=== PATIENT | female | born 1990 | race African-American/Black ===

== ENCOUNTER 2021-05-17 08:33 | Day surgery (SDC) | payer OTHER ==
[2021-05-17 08:43] VITALS: BMI 40.8
[2021-05-17] MEDS ORDERED: PROPOFOL 20 ML ONE ×2 (10:22)
[2021-05-17] MEDS ORDERED: SUCCINYLCHOLINE CHLORIDE 200 MG/10 ML SYRINGE ONE (10:22)
[2021-05-17] MEDS ORDERED: KETAMINE HCL 200 MG/20 ML VIAL ONE (10:23)
[2021-05-17 12:06] VITALS: BP 131/87; PULSE 100; TEMP 97.8
== END 2021-05-17 11:45 | disposition home or self-care (01) ==
LOC: FECT 08:33
PROVIDERS: ATTEND Psychiatry & Neurology Psychiatry
PROC: GZB4ZZZ Other Electroconvulsive Therapy (ICD-10-PCS; principal; 2021-05-17 09:00)
DX: F25.9 Schizoaffective disorder, unspecified (principal)
CPT/HCPCS: 84703; 90870; 94760; C9803; U0003; U0005

== ENCOUNTER 2021-05-20 10:57 | Day surgery (SDC) | payer OTHER ==
[2021-05-17 17:38] VITALS: BMI 40.8
[2021-05-20 15:00] VITALS: TEMP 99
[2021-05-20 15:41] VITALS: PULSE 92
[2021-05-20 16:54] VITALS: BP 113/62
== END 2021-05-20 16:30 | disposition home or self-care (01) ==
LOC: FECT 10:57
PROVIDERS: ATTEND Psychiatry & Neurology Psychiatry
PROC: GZB4ZZZ Other Electroconvulsive Therapy (ICD-10-PCS; principal; 2021-05-20)
DX: F25.1 Schizoaffective disorder, depressive type (principal)
CPT/HCPCS: 90870; 94760; C9803; U0003; U0005

== ENCOUNTER 2021-05-22 08:40 | Day surgery (SDC) | payer OTHER ==
[2021-05-20 12:05] VITALS: BMI 40.7
[2021-05-22] MEDS ORDERED: KETAMINE HCL 500 MG/10 ML VIAL ONE (10:03)
[2021-05-22 11:04] VITALS: PULSE 86; TEMP 98.2
[2021-05-22 12:41] VITALS: BP 133/80
== END 2021-05-22 11:35 | disposition home or self-care (01) ==
LOC: FECT 08:40
PROVIDERS: ATTEND Psychiatry & Neurology Psychiatry
PROC: GZB4ZZZ Other Electroconvulsive Therapy (ICD-10-PCS; principal; 2021-05-22 09:30)
DX: F25.9 Schizoaffective disorder, unspecified (principal)
CPT/HCPCS: 84703; 90870; 94760; C9803; U0003; U0005

== ENCOUNTER 2021-05-27 10:35 | Day surgery (SDC) | payer OTHER ==
[2021-05-20 12:09] VITALS: BMI 40.7
[2021-05-27 11:17] VITALS: TEMP 97.8
[2021-05-27] MEDS ORDERED: KETAMINE HCL 500 MG/10 ML VIAL ONE (12:13)
[2021-05-27 15:24] VITALS: BP 128/78; PULSE 96
== END 2021-05-27 14:05 | disposition home or self-care (01) ==
LOC: FECT 10:35
PROVIDERS: ATTEND Psychiatry & Neurology Psychiatry
PROC: GZB4ZZZ Other Electroconvulsive Therapy (ICD-10-PCS; principal; 2021-05-27 12:00)
DX: F25.1 Schizoaffective disorder, depressive type (principal)
CPT/HCPCS: 84703; 90870; 94760; C9803; U0003; U0005

== ENCOUNTER 2021-05-30 08:54 | Day surgery (SDC) | payer OTHER ==
[2021-05-23 07:05] VITALS: BMI 40.7
[2021-05-30] MEDS ORDERED: LIDOCAINE 2.5%/PRILOCAINE 2.5% (5 Gram/TUBE) TP ONE (09:45)
[2021-05-30] MEDS ORDERED: KETAMINE HCL 500 MG/10 ML VIAL ONE (11:27)
[2021-05-30 12:27] VITALS: TEMP 98.6
[2021-05-30 12:57] VITALS: BP 122/79; PULSE 85
[2021-05-31 21:06] LABS: SARS-CoV-2 NAA Not Detected (Not Detected)
== END 2021-05-30 12:55 ==
LOC: FECT 08:54
PROVIDERS: ATTEND Psychiatry & Neurology Psychiatry
PROC: GZB4ZZZ Other Electroconvulsive Therapy (ICD-10-PCS; principal; 2021-05-30 10:00)
DX: F25.9 Schizoaffective disorder, unspecified (principal)
CPT/HCPCS: 90870; 94760; C9803; U0003; U0005

== ENCOUNTER 2021-06-03 08:17 | Day surgery (SDC) | payer OTHER ==
[2021-05-29 09:58] VITALS: BMI 40.7
[2021-06-03 09:54] VITALS: TEMP 98.3
[2021-06-03] MEDS ORDERED: KETAMINE HCL 500 MG/10 ML VIAL ONE (10:32)
[2021-06-03 12:22] VITALS: BP 136/86; PULSE 88
[2021-06-04 14:12] LABS: SARS-CoV-2 NAA Not Detected (Not Detected)
== END 2021-06-03 12:25 | disposition home or self-care (01) ==
LOC: FECT 08:17
PROVIDERS: ATTEND Psychiatry & Neurology Psychiatry
PROC: GZB4ZZZ Other Electroconvulsive Therapy (ICD-10-PCS; principal; 2021-06-03 10:00)
DX: F25.9 Schizoaffective disorder, unspecified (principal)
CPT/HCPCS: 84703; 90870; 94760; C9803; U0003; U0005

== ENCOUNTER 2021-06-06 08:18 | Day surgery (SDC) | payer OTHER ==
[2021-05-29 08:26] VITALS: BMI 40.7
[2021-06-06] MEDS ORDERED: KETAMINE HCL 500 MG/10 ML VIAL ONE (09:20)
[2021-06-06 10:30] VITALS: TEMP 98
[2021-06-06 11:18] VITALS: BP 110/74; PULSE 86
[2021-06-07 15:08] LABS: SARS-CoV-2 NAA Not Detected (Not Detected)
== END 2021-06-06 11:00 ==
LOC: FECT 08:18
PROVIDERS: ATTEND Psychiatry & Neurology Psychiatry
PROC: GZB4ZZZ Other Electroconvulsive Therapy (ICD-10-PCS; principal; 2021-06-06 09:30)
DX: F25.9 Schizoaffective disorder, unspecified (principal)
CPT/HCPCS: 90870; 94760; C9803; U0003; U0005

== ENCOUNTER 2021-06-07 08:53 | Day surgery (SDC) | payer OTHER ==
[2021-06-07 09:35] VITALS: BMI 40.6
[2021-06-07] MEDS ORDERED: KETAMINE HCL 500 MG/10 ML VIAL ONE (10:47)
[2021-06-07] MEDS ORDERED: LACTATED RINGERS SOLUTION 1,000 ML IV SCH (11:15)
[2021-06-07 11:41] VITALS: TEMP 98.6
[2021-06-07 12:09] VITALS: BP 142/87; PULSE 74
== END 2021-06-07 12:10 | disposition home or self-care (01) ==
LOC: FECT 08:53
PROVIDERS: ATTEND Psychiatry & Neurology Psychiatry
PROC: GZB4ZZZ Other Electroconvulsive Therapy (ICD-10-PCS; principal; 2021-06-07 10:00)
DX: F25.9 Schizoaffective disorder, unspecified (principal)
CPT/HCPCS: 84703; 90870; 94760

== ENCOUNTER 2021-06-10 08:33 | Day surgery (SDC) | payer OTHER ==
[2021-06-04 13:38] VITALS: BMI 40.7
[2021-06-10] MEDS ORDERED: KETAMINE HCL 500 MG/10 ML VIAL ONE (09:38)
[2021-06-10 11:01] VITALS: TEMP 98.1
[2021-06-10] MEDS ORDERED: ACETAMINOPHEN 325 MG TABLET (FP) PO ONE (11:13)
[2021-06-10 11:55] VITALS: BP 126/88; PULSE 99
[2021-06-11 14:08] LABS: SARS-CoV-2 NAA Not Detected (Not Detected)
== END 2021-06-10 11:15 | disposition home or self-care (01) ==
LOC: FECT 08:33
PROVIDERS: ATTEND Psychiatry & Neurology Psychiatry
PROC: GZB4ZZZ Other Electroconvulsive Therapy (ICD-10-PCS; principal; 2021-06-10 09:30)
DX: F25.1 Schizoaffective disorder, depressive type (principal)
CPT/HCPCS: 90870; 94760; C9803-CS; U0003; U0005

== ENCOUNTER 2021-06-13 08:36 | Day surgery (SDC) | payer OTHER ==
[2021-06-13 09:16] VITALS: BMI 40.7
[2021-06-13] MEDS ORDERED: KETAMINE HCL 500 MG/10 ML VIAL ONE (09:56)
[2021-06-13 11:53] VITALS: TEMP 98.1
[2021-06-13 11:55] VITALS: BP 121/81; PULSE 86
== END 2021-06-13 11:30 ==
LOC: FECT 08:36
PROVIDERS: ATTEND Psychiatry & Neurology Psychiatry
PROC: GZB4ZZZ Other Electroconvulsive Therapy (ICD-10-PCS; principal; 2021-06-13 10:00)
DX: F25.9 Schizoaffective disorder, unspecified (principal)
CPT/HCPCS: 81025; 90870; 94760

== ENCOUNTER 2021-06-14 06:53 | Day surgery (SDC) | payer OTHER ==
[2021-06-06 13:04] VITALS: BMI 40.7
[2021-06-14] MEDS ORDERED: KETAMINE HCL 500 MG/10 ML VIAL ONE (08:43)
[2021-06-14] MEDS ORDERED: ONDANSETRON 4 MG/2 ML VIAL ONE (08:46)
[2021-06-14] MEDS ORDERED: GLYCOPYRROLATE 0.2 MG/1 ML VIAL ONE (08:46)
[2021-06-14] MEDS ORDERED: DEXAMETHASONE SOD PHOSPHATE 4 MG/1 ML VIAL ONE (08:46)
[2021-06-14] MEDS ORDERED: KETOROLAC TROMETHAMINE 30 MG/1 ML VIAL ONE (08:46)
[2021-06-14] MEDS ORDERED: LIDOCAINE HCL/PF 2% SDV 5ML VIAL ONE (08:46)
[2021-06-14] MEDS ORDERED: PROPOFOL 20 ML ONE (08:50)
[2021-06-14] MEDS ORDERED: PROMETHAZINE HCL 25 MG/1 ML VIAL IVPUSH PRN (09:57)
[2021-06-14] MEDS ORDERED: ACETAMINOPHEN 500 MG TABLET (FP) PO PRN (09:57)
[2021-06-14] MEDS ORDERED: ONDANSETRON 4 MG/2 ML VIAL IVPUSH PRN (09:57)
[2021-06-14] MEDS ORDERED: LACTATED RINGERS SOLUTION 1,000 ML IV SCH (10:00)
[2021-06-14 10:25] VITALS: TEMP 98.5
[2021-06-14 10:26] VITALS: BP 130/84; PULSE 89
[2021-06-15 16:08] LABS: SARS-CoV-2 NAA Not Detected (Not Detected)
== END 2021-06-14 10:15 ==
LOC: FECT 06:53
PROVIDERS: ATTEND Psychiatry & Neurology Psychiatry
PROC: GZB4ZZZ Other Electroconvulsive Therapy (ICD-10-PCS; principal; 2021-06-14 09:00)
DX: F25.9 Schizoaffective disorder, unspecified (principal)
CPT/HCPCS: 90870; 94760; C9803; U0003; U0005

== ENCOUNTER 2021-06-18 08:18 | Day surgery (SDC) | payer OTHER ==
[2021-06-18 08:41] VITALS: BMI 40.7
[2021-06-18] MEDS ORDERED: KETAMINE HCL 500 MG/10 ML VIAL ONE (10:34)
[2021-06-18] MEDS ORDERED: ACETAMINOPHEN 1000 MG/100 ML BAG IVPB ONE (11:00)
[2021-06-18 11:39] VITALS: TEMP 97.8
[2021-06-18 12:17] VITALS: BP 121/74; PULSE 90
[2021-06-19 11:08] LABS: SARS-CoV-2 NAA Not Detected (Not Detected)
== END 2021-06-18 12:20 | disposition home or self-care (01) ==
LOC: FECT 08:18
PROVIDERS: ATTEND Psychiatry & Neurology Psychiatry
PROC: GZB4ZZZ Other Electroconvulsive Therapy (ICD-10-PCS; principal; 2021-06-18 09:30)
DX: F25.1 Schizoaffective disorder, depressive type (principal); I10 Essential (primary) hypertension; E66.9 Obesity, unspecified; Z68.41 Body mass index [BMI] 40.0-44.9, adult; K21.9 Gastro-esophageal reflux disease without esophagitis
CPT/HCPCS: 84703; 90870; 94760; C9803; J0131; U0003; U0005

== ENCOUNTER 2021-06-20 08:48 | Day surgery (SDC) | payer OTHER ==
[2021-06-13 12:01] VITALS: BMI 40.7
[2021-06-20] MEDS ORDERED: KETAMINE HCL 500 MG/10 ML VIAL ONE (09:30)
[2021-06-20 12:09] VITALS: TEMP 98.2
[2021-06-20 12:20] VITALS: BP 122/85; PULSE 84
== END 2021-06-20 11:45 ==
LOC: FECT 08:48
PROVIDERS: ATTEND Psychiatry & Neurology Psychiatry
PROC: GZB4ZZZ Other Electroconvulsive Therapy (ICD-10-PCS; principal; 2021-06-20 09:30)
DX: F25.9 Schizoaffective disorder, unspecified (principal)
CPT/HCPCS: 90870; 94760

== ENCOUNTER 2021-06-21 07:10 | Day surgery (SDC) | payer OTHER ==
[2021-06-06 13:26] VITALS: BMI 40.7
[2021-06-21] MEDS ORDERED: KETAMINE HCL 500 MG/10 ML VIAL ONE (08:24)
[2021-06-21 12:58] VITALS: BP 114/75; PULSE 89; TEMP 97.5
== END 2021-06-21 10:25 | disposition home or self-care (01) ==
LOC: FECT 07:10
PROVIDERS: ATTEND Psychiatry & Neurology Psychiatry
PROC: GZB4ZZZ Other Electroconvulsive Therapy (ICD-10-PCS; principal; 2021-06-21 07:30)
DX: F25.1 Schizoaffective disorder, depressive type (principal)
CPT/HCPCS: 90870; 94760

== ENCOUNTER 2021-06-27 09:36 | Day surgery (SDC) | payer OTHER ==
[2021-06-18 17:18] VITALS: BMI 40.7
[2021-06-27] MEDS ORDERED: KETAMINE HCL 500 MG/10 ML VIAL ONE (10:52)
[2021-06-27 11:22] VITALS: TEMP 98.4
[2021-06-27 12:59] VITALS: BP 139/91; PULSE 88
== END 2021-06-27 13:00 ==
LOC: FECT 09:36
PROVIDERS: ATTEND Psychiatry & Neurology Psychiatry
PROC: GZB4ZZZ Other Electroconvulsive Therapy (ICD-10-PCS; principal; 2021-06-27 10:30)
DX: F32.9 Major depressive disorder, single episode, unspecified (principal)
CPT/HCPCS: 84703; 90870; 94760

== ENCOUNTER 2021-07-04 08:14 | Day surgery (SDC) | payer OTHER ==
[2021-06-28 12:35] VITALS: BMI 40.7
[2021-07-04] MEDS ORDERED: KETAMINE HCL 500 MG/10 ML VIAL ONE (10:15)
[2021-07-04 11:18] VITALS: PULSE 84; TEMP 97.8
[2021-07-04 11:39] VITALS: BP 122/74
[2021-07-05 19:07] LABS: SARS-CoV-2 NAA Not Detected (Not Detected)
== END 2021-07-04 11:30 ==
LOC: FECT 08:14
PROVIDERS: ATTEND Psychiatry & Neurology Psychiatry
PROC: GZB4ZZZ Other Electroconvulsive Therapy (ICD-10-PCS; principal; 2021-07-04 09:00)
DX: F25.9 Schizoaffective disorder, unspecified (principal)
CPT/HCPCS: 84703; 90870; 94760; C9803; U0003; U0005

== ENCOUNTER 2021-07-08 08:44 | Day surgery (SDC) | payer OTHER ==
[2021-07-05 07:52] VITALS: BMI 40.7
[2021-07-08] MEDS ORDERED: KETAMINE HCL 500 MG/10 ML VIAL ONE (09:44)
[2021-07-08 10:51] VITALS: PULSE 88; TEMP 98.2
[2021-07-08 11:54] VITALS: BP 121/76
== END 2021-07-08 12:00 ==
LOC: FECT 08:44
PROVIDERS: ATTEND Psychiatry & Neurology Psychiatry
PROC: GZB4ZZZ Other Electroconvulsive Therapy (ICD-10-PCS; principal; 2021-07-08 10:00)
DX: F25.9 Schizoaffective disorder, unspecified (principal)
CPT/HCPCS: 84703; 90870; 94760

== ENCOUNTER 2021-07-11 07:41 | Day surgery (SDC) | payer OTHER ==
[2021-07-05 07:58] VITALS: BMI 40.7
[2021-07-11] MEDS ORDERED: KETAMINE HCL 500 MG/10 ML VIAL ONE (09:41)
[2021-07-11 12:55] VITALS: TEMP 98.1
[2021-07-11 13:03] VITALS: BP 125/93; PULSE 80
[2021-07-11 15:38] LABS: HIV INTERPRETATION NEGATIVE (NEGATIVE)
== END 2021-07-11 11:25 ==
LOC: FECT 07:41
PROVIDERS: ATTEND Psychiatry & Neurology Psychiatry
PROC: GZB4ZZZ Other Electroconvulsive Therapy (ICD-10-PCS; principal; 2021-07-11 09:30)
DX: F25.9 Schizoaffective disorder, unspecified (principal)
CPT/HCPCS: 36415; 84460; 84703; 86803; 87340; 87389; 90870; 94760

== ENCOUNTER 2021-07-15 08:30 | Day surgery (SDC) | payer OTHER ==
[2021-07-12 09:47] VITALS: BMI 40.7
[2021-07-15] MEDS ORDERED: KETAMINE HCL 500 MG/10 ML VIAL ONE (10:15)
[2021-07-15 11:32] VITALS: TEMP 97.8
[2021-07-15 11:49] VITALS: BP 114/74; PULSE 89
[2021-07-16 13:11] LABS: SARS-CoV-2 NAA Not Detected (Not Detected)
== END 2021-07-15 11:45 ==
LOC: FECT 08:30
PROVIDERS: ATTEND Psychiatry & Neurology Psychiatry
PROC: GZB4ZZZ Other Electroconvulsive Therapy (ICD-10-PCS; principal; 2021-07-15 10:00)
DX: F25.1 Schizoaffective disorder, depressive type (principal)
CPT/HCPCS: 84703; 90870; 94760; C9803; U0003; U0005

== ENCOUNTER 2021-07-18 09:06 | Day surgery (SDC) | payer OTHER ==
[2021-07-16 08:08] VITALS: BMI 40.7
[2021-07-18 12:04] VITALS: TEMP 97.8
[2021-07-18 12:31] VITALS: BP 140/91; PULSE 88
[2021-07-19 12:08] LABS: SARS-CoV-2 NAA Not Detected (Not Detected)
== END 2021-07-18 12:30 ==
LOC: FECT 09:06
PROVIDERS: ATTEND Psychiatry & Neurology Psychiatry
PROC: GZB4ZZZ Other Electroconvulsive Therapy (ICD-10-PCS; principal; 2021-07-18 11:00)
DX: F25.9 Schizoaffective disorder, unspecified (principal)
CPT/HCPCS: 90870; 94760; C9803; U0003; U0005

== ENCOUNTER 2021-07-23 05:55 | Day surgery (SDC) | payer OTHER ==
[2021-07-17 14:00] VITALS: BMI 40.7
[2021-07-23 09:44] VITALS: TEMP 98
[2021-07-23 10:28] VITALS: BP 122/84; PULSE 89
[2021-07-24 10:08] LABS: SARS-CoV-2 NAA Not Detected (Not Detected)
== END 2021-07-23 10:15 ==
LOC: FECT 05:55
PROVIDERS: ATTEND Psychiatry & Neurology Psychiatry
PROC: GZB4ZZZ Other Electroconvulsive Therapy (ICD-10-PCS; principal; 2021-07-23 08:30)
DX: F25.1 Schizoaffective disorder, depressive type (principal)
CPT/HCPCS: 81025; 90870; 94760; C9803; U0003; U0005

== ENCOUNTER → 2021-07-25 | Day surgery (SDC) | payer OTHER ==
[2021-07-19 17:04] VITALS: BMI 40.7
[2021-07-25 09:31] VITALS: TEMP 97.7
[2021-07-25 10:17] VITALS: BP 130/62; PULSE 90
[2021-07-26 17:08] LABS: SARS-CoV-2 NAA Not Detected (Not Detected)
== END | disposition home or self-care (01) ==
LOC: FECT 05:49
PROVIDERS: ATTEND Psychiatry & Neurology Psychiatry
PROC: GZB4ZZZ Other Electroconvulsive Therapy (ICD-10-PCS; principal; 2021-07-25 08:36)
DX: F25.1 Schizoaffective disorder, depressive type (principal)
CPT/HCPCS: 90870; 94760; C9803; U0003; U0005

== ENCOUNTER 2021-07-29 06:05 | Day surgery (SDC) | payer OTHER ==
[2021-07-23 17:28] VITALS: BMI 40.7
[2021-07-29 11:06] VITALS: PULSE 79; TEMP 97.8
[2021-07-29 11:25] VITALS: BP 125/84
[2021-07-30 12:08] LABS: SARS-CoV-2 NAA Not Detected (Not Detected)
== END 2021-07-29 11:20 | disposition home or self-care (01) ==
LOC: FECT 06:05
PROVIDERS: ATTEND Psychiatry & Neurology Psychiatry
PROC: GZB4ZZZ Other Electroconvulsive Therapy (ICD-10-PCS; principal; 2021-07-29 09:30)
DX: F25.1 Schizoaffective disorder, depressive type (principal)
CPT/HCPCS: 84703; 90870; 94760; C9803; U0003; U0005

== ENCOUNTER 2021-08-01 08:16 | Day surgery (SDC) | payer OTHER ==
[2021-07-29 16:31] VITALS: BMI 40.7
[2021-08-01 11:25] VITALS: TEMP 97.6
[2021-08-01 11:54] VITALS: BP 133/73; PULSE 89
[2021-08-01] MEDS ORDERED: ACETAMINOPHEN 325 MG TABLET (FP) PO PRN (12:01)
[2021-08-02 13:08] LABS: SARS-CoV-2 NAA Not Detected (Not Detected)
== END 2021-08-01 11:55 ==
LOC: FECT 08:16
PROVIDERS: ATTEND Psychiatry & Neurology Psychiatry
PROC: GZB4ZZZ Other Electroconvulsive Therapy (ICD-10-PCS; principal; 2021-08-01 10:34)
DX: F25.9 Schizoaffective disorder, unspecified (principal)
CPT/HCPCS: 90870; 94760; C9803; U0003; U0005

== ENCOUNTER 2021-08-05 07:25 | Day surgery (SDC) | payer OTHER ==
[2021-08-01 17:03] VITALS: BMI 40.7
[2021-08-05] MEDS ORDERED: KETAMINE HCL 500 MG/10 ML VIAL ONE (08:48)
[2021-08-05 09:16] VITALS: TEMP 98.2
[2021-08-05 10:06] VITALS: BP 116/70; PULSE 90
[2021-08-06 13:08] LABS: SARS-CoV-2 NAA Not Detected (Not Detected)
== END 2021-08-05 10:40 | disposition home or self-care (01) ==
LOC: FECT 07:25
PROVIDERS: ATTEND Psychiatry & Neurology Psychiatry
PROC: GZB4ZZZ Other Electroconvulsive Therapy (ICD-10-PCS; principal; 2021-08-05 09:00)
DX: F25.1 Schizoaffective disorder, depressive type (principal)
CPT/HCPCS: 81025; 90870; 94760; C9803; U0003; U0005

== ENCOUNTER 2021-08-08 08:15 | Day surgery (SDC) | payer OTHER ==
[2021-08-06 16:56] VITALS: BMI 40.7
[2021-08-08 11:30] VITALS: PULSE 87; TEMP 98.6
[2021-08-08 11:33] VITALS: BP 129/84
[2021-08-09 13:08] LABS: SARS-CoV-2 NAA Not Detected (Not Detected)
== END 2021-08-08 11:20 | disposition home or self-care (01) ==
LOC: FECT 08:15
PROVIDERS: ATTEND Psychiatry & Neurology Psychiatry
PROC: GZB4ZZZ Other Electroconvulsive Therapy (ICD-10-PCS; principal; 2021-08-08 09:56)
DX: F25.9 Schizoaffective disorder, unspecified (principal)
CPT/HCPCS: 90870; 94760; C9803; U0003; U0005

== ENCOUNTER 2021-08-12 08:39 | Day surgery (SDC) | payer OTHER ==
[2021-08-08 08:02] VITALS: BMI 40.7
[2021-08-12 09:56] VITALS: TEMP 98.1
[2021-08-12 12:52] VITALS: BP 144/89; PULSE 89
[2021-08-13 14:09] LABS: SARS-CoV-2 NAA Not Detected (Not Detected)
== END 2021-08-12 12:55 ==
LOC: FECT 08:39
PROVIDERS: ATTEND Psychiatry & Neurology Psychiatry
PROC: GZB4ZZZ Other Electroconvulsive Therapy (ICD-10-PCS; principal; 2021-08-12 11:47)
DX: F25.1 Schizoaffective disorder, depressive type (principal)
CPT/HCPCS: 84703; 90870; 94760; C9803; U0003; U0005

== ENCOUNTER 2021-08-15 08:51 | Day surgery (SDC) | payer OTHER ==
[2021-08-09 12:50] VITALS: BMI 40.7
[2021-08-15 11:09] VITALS: TEMP 98
[2021-08-15 11:34] VITALS: BP 122/76; PULSE 84
[2021-08-15 11:58] LABS: CALCIUM 8.6 mg/dL (8.5-10.1)
[2021-08-15 11:59] LABS: BLOOD UREA NITROGEN 11.8 mg/dL (7-18); MAGNESIUM 1.7 mg/dL (1.8-2.4)
[2021-08-15 12:02] LABS: BASO % 0.3 % (0-2.0); EOS % 3.7 % (0-4.5); HEMATOCRIT 33.2 % (32.4-45.2); HEMOGLOBIN 10.9 GM/dL (10.7-15.3); LYMPH % 33.6 % (8-40); MCH 26.5 pg (25.7-33.7); MCHC 32.8 g/dl (32.0-36.0); MEAN CELL VOLUME 80.9 fl (80-96); MEAN PLT VOLUME 8.9 fl (7.5-11.1); MONO % 7.5 % (3.8-10.2); NEUT % 54.9 % (42.8-82.8); PLATELET COUNT 299 10^3/uL (134-434); RDW 15.6 % (11.6-15.6); WHITE BLOOD COUNT 6.2 K/mm3 (4.0-10.0)
[2021-08-15 12:03] LABS: BILIRUBIN,TOTAL 0.3 mg/dL (0.2-1); TOT PROT 6.6 g/dl (6.4-8.2)
== END 2021-08-15 11:35 | disposition home or self-care (01) ==
LOC: FECT 08:51
PROVIDERS: ATTEND Psychiatry & Neurology Psychiatry
PROC: GZB4ZZZ Other Electroconvulsive Therapy (ICD-10-PCS; principal; 2021-08-15 10:16)
DX: F25.9 Schizoaffective disorder, unspecified (principal)
CPT/HCPCS: 36415; 80053; 83735; 85025; 90870; 94760

== ENCOUNTER 2021-08-26 08:26 | Day surgery (SDC) | payer OTHER ==
[2021-08-19 16:24] VITALS: BMI 40.7
[2021-08-26] MEDS ORDERED: KETAMINE HCL 500 MG/10 ML VIAL ONE (09:48)
[2021-08-26 11:02] VITALS: TEMP 97.8
[2021-08-26 11:15] VITALS: BP 135/89; PULSE 88
[2021-08-27 13:09] LABS: SARS-CoV-2 NAA Not Detected (Not Detected)
== END 2021-08-26 11:30 ==
LOC: FECT 08:26
PROVIDERS: ATTEND Psychiatry & Neurology Psychiatry
PROC: GZB4ZZZ Other Electroconvulsive Therapy (ICD-10-PCS; principal; 2021-08-26 10:09)
DX: F25.1 Schizoaffective disorder, depressive type (principal)
CPT/HCPCS: 84703; 90870; 94760; C9803-CS; U0003; U0005

== ENCOUNTER 2021-08-29 08:23 | Day surgery (SDC) | payer OTHER ==
[2021-08-27 10:20] VITALS: BMI 40.7
[2021-08-29] MEDS ORDERED: KETAMINE HCL 500 MG/10 ML VIAL ONE (09:28)
[2021-08-29 10:03] VITALS: TEMP 98.4
[2021-08-29 10:57] VITALS: BP 113/87; PULSE 89
[2021-08-30 15:07] LABS: SARS-CoV-2 NAA Not Detected (Not Detected)
== END 2021-08-29 11:30 ==
LOC: FECT 08:23
PROVIDERS: ATTEND Psychiatry & Neurology Psychiatry
PROC: GZB4ZZZ Other Electroconvulsive Therapy (ICD-10-PCS; principal; 2021-08-29 09:47)
DX: F25.9 Schizoaffective disorder, unspecified (principal)
CPT/HCPCS: 90870; 94760; C9803-CS; U0003; U0005